=== PATIENT | female | born 1975 | race Caucasian/White ===

== ENCOUNTER 2017-01-01 19:22 | Emergency (ER) | payer OTHER ==
[2017-01-01 19:37] VITALS: BP 120/75; PULSE 90; TEMP 98.1; BMI 29.9
[2017-01-01] MEDS ORDERED: diphenhydrAMINE HCL 25 MG CAPSULE (FP) PO ONE ×2 (20:53→21:35)
[2017-01-01] MEDS ORDERED: DEXAMETHASONE SOD PHOSPHATE 10 MG/1 ML VIAL IM ONE (20:54)
[2017-01-01] MEDS ORDERED: DEXAMETHASONE SOD PHOSPHATE 10 MG/1 ML VIAL ONE (20:55)
--- NOTE | 2017-01-01 21:42 | PDOC ---
History of Present Illness - General Chief Complaint: Sore Throat Stated Complaint: INFLAMMATION Time Seen by Provider: 01/01/17 20:08 History Source: Patient Exam Limitations: No Limitations - History of Present Illness Initial Comments: 01/01/17 21:36 CC uvula swelling post forcing cough due to post nasal drip yhis pm; denies meds or other causes Timing/Duration: 4-6 hours Severity: mild Associated Symptoms: denies: cough, fever/chills, malaise, nausea/vomiting, shortness of breath Past History - Past Medical History Allergies/Adverse Reactions: Allergies Allergy/AdvReac Type Severity Reaction Status Date / Time No Known Allergies Allergy Verified 01/01/17 19:30 Home Medications: Ambulatory Orders No Home Medications 0 dose .ROUTE UTDICT 11/28/12 Anemia: No Asthma: No Diabetes: No HTN: No Hypercholesterolemia: No - Reproductive History (#): 5 Para: 3 Spontaneous : 1 - Immunization History Immunization Up to Date: Yes - Psycho/Social/Smoking Cessation Hx Anxiety: No Suicidal Ideation: No Smoking Status: Yes Smoking History: Former smoker Have you smoked in the past 12 months: No Number of Cigarettes Smoked Daily: 0 If you are a former smoker, when did you quit?: 2006 Information on smoking cessation initiated: No Hx Alcohol Use: No Drug/Substance Use Hx: No Substance Use Type: None *Physical Exam - Vital Signs Last Vital Signs Temp Pulse Resp BP Pulse Ox 98.1 F 90 16 120/75 100 01/01/17 19:30 01/01/17 19:30 01/01/17 19:30 01/01/17 19:30 01/01/17 19:30 - Physical Exam General Appearance: Yes: Appropriately Dressed. No: Apparent Distress HEENT: positive: TMs Normal, Nasal Congestion, Rhinorrhea, Other (with post nasal drip; mild STS to inferior uvula; not resting on toungue now; pt feeling bater since start). negative: Pharynx Normal Neck: positive: Supple, Lymphadenopathy (R). negative: Tender, Rigid, Lymphadenopathy (L) Respiratory/Chest: positive: Lungs Clear, Normal Breath Sounds. negative: Accessory Muscle Use, Rhonchi, Stridor ED Treatment Course - ADDITIONAL ORDERS Additional order review: 01/01/17 20:50 Group A Strep Rapid Antigen - Final Throat - Medications Given in the ED: ED Medications Discontinued Medications Generic Name Dose Route Start Last Admin Trade Name Kyle PRN Reason Stop Dose Admin Dexamethasone Sodium Phosphate 10 mg 01/01/17 20:54 01/01/17 20:58 Decadron Injection - IM 01/01/17 20:55 10 mg ONCE ONE Administration Medical Decision Making - Medical Decision Making 01/01/17 21:39 rapid strep= negative; driving can't give IM benadry; decadron given now; benadryl for home *DC/Admit/Observation/Transfer Diagnosis at time of Disposition: Throat pain, Uvular edema - Discharge Dispostion Disposition: HOME Condition at time of disposition: Stable Admit: No - Patient Instructions Additional Instructions: please return for increased symptoms; avoid forced cough or snorting; see local MD if no resolved Friday
== END 2017-01-01 21:44 | disposition home or self-care (01) ==
LOC: JER 19:22 → JERFT 19:22
PROC: 3E023GC Introduction of Other Therapeutic Substance into Muscle, Percutaneous Approach (ICD-10-PCS; principal; 2017-01-01)
DX: J02.9 Acute pharyngitis, unspecified (principal); R22.1 Localized swelling, mass and lump, neck; Z87.891 Personal history of nicotine dependence
CPT/HCPCS: 87070; 87430; 96372; 99281-25

== ENCOUNTER 2017-10-25 18:03 | Emergency (ER) | payer OTHER ==
[2017-10-25 18:13] VITALS: BP 125/74; PULSE 79; TEMP 98; BMI 30.7
[2017-10-25] MEDS ORDERED: predniSONE 20 MG TABLET (UD) PO ONE (19:25)
[2017-10-25] MEDS ORDERED: ALBUTEROL SO4 2.5/IPRATROPIUM 0.5 INH SOL 3 ML VIAL.NEB. NEB ONE ×2 (19:25→19:29)
[2017-10-25] MEDS ORDERED: predniSONE 20 MG TABLET (UD) ONE (19:29)
--- NOTE | 2017-10-25 19:31 | PDOC ---
History of Present Illness - General Chief Complaint: Cold Symptoms Stated Complaint: COUGHING Time Seen by Provider: 10/25/17 19:21 History Source: Patient Exam Limitations: No Limitations - History of Present Illness Timing/Duration: reports: just prior to arrival Severity: reports: mild Past History - Travel Traveled outside of the country in the last 30 days: No Close contact w/someone who was outside of country & ill: No - Past Medical History Allergies/Adverse Reactions: Allergies Allergy/AdvReac Type Severity Reaction Status Date / Time No Known Allergies Allergy Verified 10/25/17 18:10 Home Medications: Ambulatory Orders No Home Medications 0 dose .ROUTE UTDICT 11/28/12 Albuterol Sulfate Inhaler - [Ventolin HFA Inhaler -] 1 - 2 inh PO Q4H #1 inhaler 10/25/17 Prednisone [Deltasone -] 20 mg PO BID #8 tablet 10/25/17 Anemia: No Asthma: No CVA: No COPD: No Diabetes: No HTN: No Hypercholesterolemia: No - Reproductive History (#): 5 Para: 3 Spontaneous : 1 - Immunization History Immunization Up to Date: Yes - Suicide/Smoking/Psychosocial Hx Smoking Status: Yes Smoking History: Never smoked Have you smoked in the past 12 months: No Number of Cigarettes Smoked Daily: 0 If you are a former smoker, when did you quit?: 11yrs Information on smoking cessation initiated: No Hx Alcohol Use: No Drug/Substance Use Hx: No Substance Use Type: None Respiratory Specific PMHX - Complaint Specific PMHX Bronchitis: No Pneumonia: No Review of Systems - Review of Systems Able to Perform ROS?: Yes Is the patient limited Maltese proficient: Yes Constitutional: Yes: Symptoms Reported, See HPI, Loss of Appetite, Malaise. No : Fever HEENTM: Yes: Symptoms Reported, See HPI, Nose Congestion Respiratory: Yes: Symptoms reported, See HPI, Cough. No: Wheezing, Productive cough Cardiac (ROS): No: Symptoms Reported All Other Systems: Reviewed and Negative *Physical Exam - Vital Signs Last Vital Signs Temp Pulse Resp BP Pulse Ox 98.0 F 79 16 125/74 97 10/25/17 18:10 10/25/17 18:10 10/25/17 18:10 10/25/17 18:10 10/25/17 18:10 - Physical Exam General Appearance: Yes: Nourished, Appropriately Dressed, Apparent Distress, Mild Distress HEENT: positive: DRE, Normal ENT Inspection, TMs Normal, Pharynx Normal ( cobblestone appearance, no exudate or swelling), Rhinorrhea (clear drainage) Neck: positive: Supple. negative: Lymphadenopathy (R), Lymphadenopathy (L) Respiratory/Chest: positive: Lungs Clear (but coarse, no wheezing or retractions ), Normal Breath Sounds Cardiovascular: positive: Regular Rhythm Gastrointestinal/Abdominal: positive: Soft. negative: Tender Extremity: positive: Normal Capillary Refill Integumentary: positive: Normal Color, Dry, Warm, Pale Neurologic: positive: pnp II-XII NML intact, Fully Oriented, Alert, Normal Mood/ Affect, Normal Response, Motor Strength 04/04 Progress Note - Progress Note Progress Note: Reactive airway, post upper respiratory infection. We will treat with prednisone and bronchodilators and have follow-up with physician Friday as needed *DC/Admit/Observation/Transfer Diagnosis at time of Disposition: Reactive airway disease Qualifiers: Asthma severity: mild Asthma persistence: unspecified Qualified Code(s): J45.909 - Unspecified asthma, uncomplicated - Discharge Dispostion Disposition: HOME Condition at time of disposition: Stable Admit: No - Referrals Referrals: Nesha Machado MD [Primary Care Provider] - - Patient Instructions Printed Discharge Instructions: DI for Acute Bronchitis Additional Instructions: Rest, drink lots of fluids: Teas, water, soups, Pedialyte Saltwater gargles Steamy showers/seem to face break up mucus Avoid contact with others until fevers and cough resolved Lots of handwashing and good hygiene Continue [id number] medications for symptomatic relief Tylenol or Motrin for fever and pain Albuterol Inhaler 2 puffs 4 times a day for the next 3 days then as needed for continued cough or shortness of breath Prednisone 20 mg twice a day for the next 4 days Followup with private physician in one to 2 days as needed Return to emergency department for worsened symptoms, fevers, dehydration - Post Discharge Activity Forms/Work/School Notes: Back to Work
== END 2017-10-25 21:18 | disposition home or self-care (01) ==
LOC: JERFT 18:03
PROC: 3E0F7GC Introduction of Other Therapeutic Substance into Respiratory Tract, Via Natural or Artificial Opening (ICD-10-PCS; principal; 2017-10-25)
DX: J45.909 Unspecified asthma, uncomplicated (principal)
CPT/HCPCS: 71020-TC; 94640; 99281-25

== ENCOUNTER 2018-11-08 08:05 | Emergency (ER) | payer OTHER ==
[2018-11-08 08:09] VITALS: BP 123/86; PULSE 98; TEMP 97.7; BMI 30.7
[2018-11-08] MEDS ORDERED: predniSONE 20 MG TABLET (UD) ONE (08:36)
[2018-11-08] MEDS ORDERED: ALBUTEROL SO4 2.5/IPRATROPIUM 0.5 INH SOL 3 ML VIAL.NEB. NEB ONE ×2 (08:36→08:42)
[2018-11-08] MEDS ORDERED: predniSONE 20 MG TABLET (UD) PO ONE (08:42)
--- NOTE | 2018-11-08 08:48 | PDOC ---
History of Present Illness - General Chief Complaint: Sore Throat Stated Complaint: SORE THROAT Time Seen by Provider: 11/08/18 08:11 History Source: Patient Exam Limitations: No Limitations - History of Present Illness Initial Comments: 11/08/18 08:43 Patient came with complaints of sore throat pain that's worsening since last Friday. States developed a URI with postnasal drainage and cough. Develop sore throat pain that's worse in the morning. Has used [id number] medications and takes daily ALLERGY medications but feels is not working as well as it has used year. Denies fever, states his had some greenish phlegm production on occasion no nasal drainage. Timing/Duration: unsure, 1 week Severity: mild, moderate Associated Symptoms: reports: cough, headaches, malaise. denies: fever/chills Past History - Travel Traveled outside of the country in the last 30 days: No Close contact w/someone who was outside of country & ill: No - Past Medical History Allergies/Adverse Reactions: Allergies Allergy/AdvReac Type Severity Reaction Status Date / Time No Known Allergies Allergy Verified 11/08/18 08:06 Home Medications: Ambulatory Orders Albuterol Sulfate Inhaler - [Ventolin HFA Inhaler -] 1 - 2 inh PO Q4H #1 inhaler 11/08/18 Cetirizine HCl/Pseudoephedrine [Zyrtec-D Tablet] 1 each PO DAILY #30 tab.er.12h 11/08/18 predniSONE [Deltasone -] 20 mg PO BID #8 tablet 11/08/18 Anemia: No Asthma: No CVA: No COPD: No Diabetes: No HTN: No Hypercholesterolemia: No - Reproductive History (#): 5 Para: 3 Spontaneous : 1 - Immunization History Immunization Up to Date: Yes - Suicide/Smoking/Psychosocial Hx Smoking Status: Yes Smoking History: Former smoker Have you smoked in the past 12 months: No Number of Cigarettes Smoked Daily: 0 If you are a former smoker, when did you quit?: 2007 Information on smoking cessation initiated: No Hx Alcohol Use: No Drug/Substance Use Hx: No Substance Use Type: None Review of Systems - Review of Systems Able to Perform ROS?: Yes Is the patient limited Thai proficient: Yes Constitutional: Yes: Symptoms Reported, See HPI, Chills, Loss of Appetite, Malaise. No: Fever HEENTM: Yes: Symptoms Reported, See HPI, Nose Congestion, Throat Pain. No: Difficulty Swallowing Respiratory: Yes: See HPI, Cough, Wheezing. No: Symptoms reported Musculoskeletal: Yes: See HPI. No: Symptoms Reported Integumentary: Yes: See HPI. No: Symptoms Reported All Other Systems: Reviewed and Negative *Physical Exam - Vital Signs Last Vital Signs Temp Pulse Resp BP Pulse Ox 97.7 F 98 H 18 123/86 100 11/08/18 08:06 11/08/18 08:06 11/08/18 08:06 11/08/18 08:06 11/08/18 08:06 - Physical Exam General Appearance: Yes: Nourished, Appropriately Dressed, Apparent Distress, Mild Distress HEENT: positive: DRE, Normal ENT Inspection, TMs Normal, Pharynx Normal, Nasal Congestion (clear drainage), Rhinorrhea Neck: positive: Supple. negative: Tender Respiratory/Chest: positive: Lungs Clear, Wheezing (coarse ) Musculoskeletal: positive: Normal Inspection Extremity: positive: Normal Capillary Refill, Normal Inspection, Normal Range of Motion Integumentary: positive: Normal Color, Warm, Pale Neurologic: positive: datastage consultant II-XII NML intact, Fully Oriented, Alert, Normal Mood/ Affect, Normal Response, Motor Strength 5/5 Moderate Sedation - Procedure Monitoring Vital Signs: Procedure Monitoring Vital Signs Temperature 97.7 F 11/08/18 08:06 Pulse Rate 98 H 11/08/18 08:06 Respiratory Rate 18 11/08/18 08:06 Blood Pressure 123/86 11/08/18 08:06 O2 Sat by Pulse Oximetry (%) 100 11/08/18 08:06 Medical Decision Making - Medical Decision Making 11/08/18 much improved after DuoNeb and prednison.We'll discharge with Zyrtec/ Albuteraol pump and prednoisone 11/08/18 17:07 *DC/Admit/Observation/Transfer Diagnosis at time of Disposition: Upper respiratory infection, viral - Discharge Dispostion Disposition: HOME Condition at time of disposition: Stable Decision to Admit order: No - Prescriptions Prescriptions: Albuterol Sulfate Inhaler - [Ventolin HFA Inhaler -] 1 - 2 inh PO Q4H #1 inhaler Cetirizine HCl/Pseudoephedrine [Zyrtec-D Tablet] 1 each PO DAILY #30 tab.er.12h predniSONE [Deltasone -] 20 mg PO BID #8 tablet - Referrals - Patient Instructions Printed Discharge Instructions: DI for Viral Upper Respiratory Infection -- Adult Additional Instructions: Rest, drink lots of fluids: Teas, water, soups, Pedialyte Saltwater gargles Steamy showers/seem to face break up mucus Avoid contact with others until fevers and cough resolved Lots of handwashing and good hygiene Continue [id number] medications for symptomatic relief Tylenol or Motrin for fever and pain Continue albuterol nebulizers every 4-6 hours for the next 2 days then as needed for continued cough Prednisone as directed until completed Zyrte D daily for allergen Followup with private physician in one to 2 days Return to emergency department / pediatric hospital for worsened symptoms, fevers, dehydration - Post Discharge Activity Forms/Work/School Notes: Back to Work
== END 2018-11-08 09:38 | disposition home or self-care (01) ==
LOC: JERFT 08:05
PROC: 3E0F7GC Introduction of Other Therapeutic Substance into Respiratory Tract, Via Natural or Artificial Opening (ICD-10-PCS; principal; 2018-11-08)
DX: J06.9 Acute upper respiratory infection, unspecified (principal); Z87.891 Personal history of nicotine dependence
CPT/HCPCS: 94640; 99281-25

== ENCOUNTER 2021-05-14 09:58 | Emergency (ER) | payer OTHER ==
[2021-05-14 10:05] VITALS: TEMP 98.9; BMI 30.7
[2021-05-14 11:26] LABS: BASO % 0.6 % (0-2.0); EOS % 0.9 % (0-4.5); HEMATOCRIT 41.6 % (32.4-45.2); HEMOGLOBIN 13.6 GM/dL (10.7-15.3); LYMPH % 24.7 % (8-40); MCH 30.6 pg (25.7-33.7); MCHC 32.6 g/dl (32.0-36.0); MEAN CELL VOLUME 93.9 fl (80-96); MEAN PLT VOLUME 9.2 fl (7.5-11.1); MONO % 7.1 % (3.8-10.2); NEUT % 66.7 % (42.8-82.8); PLATELET COUNT 262 K/MM3 (134-434); RBC 4.43 M/mm3 (3.60-5.2); RDW 13.9 % (11.6-15.6); WHITE BLOOD COUNT 8.5 K/mm3 (4.0-10.0)
[2021-05-14 11:39] LABS: ALBUMIN 3.8 g/dl (3.4-5.0); BLOOD UREA NITROGEN 17.2 mg/dL (7-18); CALCIUM 9.3 mg/dL (8.5-10.1)
[2021-05-14 11:42] LABS: CREATININE 0.7 mg/dL (0.55-1.3)
[2021-05-14 11:44] LABS: BILIRUBIN,TOTAL 0.2 mg/dL (0.2-1); TOT PROT 7.4 g/dl (6.4-8.2)
[2021-05-14 15:46] VITALS: BP 112/57; PULSE 74
== END 2021-05-14 15:51 | disposition home or self-care (01) ==
LOC: JER 09:58
DX: R16.0 Hepatomegaly, not elsewhere classified (principal)
CPT/HCPCS: 36415; 74178-TC; 80053; 84703; 85025; 99284-25; Q9967